=== PATIENT | female | born 1945 | race Caucasian/White ===

== ENCOUNTER → 2016-08-14 | Outpatient (CLI) | payer MEDICARE, BC ==
[~2016-08-14] MED LIST: AMLODIPINE-VAL1 EAC2 PO; CALCIUM 600 +1 EAC7 PO; DENAVIR1.5 GM TOP; FOLIC ACID0.8 MG PO; GAVISCON1 TAB PO; MOBIC15 MG PO; NORCO 325-5 MG1 TAB PO; NORVASC5 MG PO; PERCOCET 325-51 TAB PO; PROTONIX40 M1 PO; SONATA10 MG PO; ULTRAM50 MG PO; VITAMIN B-121000 MCG PO
== END | disposition short-term general hospital (02) ==
LOC: CLORTH 09:52
DX: M17.11 Unilateral primary osteoarthritis, right knee (principal); M85.861 Other specified disorders of bone density and structure, right lower leg; Z98.890 Other specified postprocedural states
CPT/HCPCS: J1100; J2795